=== PATIENT | female | born 1995 | race Caucasian/White ===

== ENCOUNTER 2017-02-06 00:58 | Emergency (ER) | payer BC ==
[2017-02-06 02:02] VITALS: BP 108/73
== END 2017-02-06 02:02 | disposition home or self-care (01) ==
LOC: ED 00:58
DX: S93.602A Unspecified sprain of left foot, initial encounter (principal); L03.116 Cellulitis of left lower limb; W17.89XA Other fall from one level to another, initial encounter; Y93.89 Activity, other specified; Y99.8 Other external cause status; Y92.89 Other specified places as the place of occurrence of the external cause
CPT/HCPCS: Q0092

== ENCOUNTER 2018-05-19 17:37 | Emergency (ER) | payer BC ==
[~2018-05-19] VITALS: Ht 180.3 cm; Wt 51.3 kg
[2018-05-19 17:44] VITALS: Ht 180.3 cm; Wt 51.3 kg
[2018-05-19 19:51] VITALS: BP 108/61
== END 2018-05-19 19:53 | disposition home or self-care (01) ==
LOC: ED 17:37
DX: O26.891 Other specified pregnancy related conditions, first trimester (principal); M54.5 Low back pain; R10.30 Lower abdominal pain, unspecified; R42 Dizziness and giddiness; F12.10 Cannabis abuse, uncomplicated; Z3A.00 Weeks of gestation of pregnancy not specified